=== PATIENT | female | born 1975 | race Caucasian/White ===

== ENCOUNTER 2024-03-18 12:44 | Outpatient (CLI) | payer BC, SELFPAY ==
--- NOTE | ~2024-03-18 | US_ITS ---
EXAMINATION: US pelvic complete INDICATION: Abnormal uterine bleeding Comparison:No prior studies for comparison. TECHNIQUE: Multiple transabdominal sonographic images of the pelvis performed. FINDINGS: The uterus measures 8.2 x 4.6 x 5.7 cm. There is a uterine fibroid located posteriorly miriam uring 2.8 x 2.2 x 2.1 cm. The endometrial complex measures 6 mm. The right ovary measures 2.7 x 1.7 x 1.8 cm and the left ovary measures 2.5 x 2.3 x 2.1 cm. There ar e small follicles in each ovary. Normal doppler signal in both ovaries. There is no free fluid in the pelvis. There are no abnormal masses seen on either side. IMPRESSION: 1. Uterine fibroid located posteriorly measuring 2.8 cm. Reviewed, dictated and finalized at location B.
== END 2024-03-18 12:45 ==
LOC: MICIMG 12:46
PROVIDERS: PCP Nurse Practitioner; Visit Provider Nurse Practitioner
DX: N93.8 Other specified abnormal uterine and vaginal bleeding (principal); D25.9 Leiomyoma of uterus, unspecified
CPT/HCPCS: 76856

== ENCOUNTER 2024-05-12 00:50 | Day surgery (SDC) | payer BC, SELFPAY ==
--- NOTE | 2024-05-01 16:53 | SUR.PREOP ---
Report to the Outpatient Waiting Room, entrance under the green pavilion located off [facility], at time 0800 on date 05/12/24. Planned Procedure Time: 1000. Time changes happen often and if your time is changed the preop area will call you the afternoon before. - You and your visitor will be asked to self-screen and do not enter if you have any COVID symptoms. - A mask is optional within the hospital at this time. Patients may have clear liquids (water, carbonated beverages, clear teas, apple juice) until 3 hours prior to surgery with a maximum of 20 ounces. - No food from midnight until time of surgery - Infants may have breast milk until 4 hours before surgery, formula 6 hours prior to surgery. - Children will be allowed to drink immediately following surgery. If applicable, please bring a bottle or sippy cup to assist with drinking. Juice, water, soda, and popsicles are readily available. For infants on formula, please bring formula the day of surgery. Pacifiers are allowed. Take the following medications with a SIP of water the morning of surgery: N/A DO NOT STOP ANY OF YOUR OTHER PRESCRIPTION MEDICATIONS PRIOR TO SURGERY ?EXCEPT THE FOLLOWING Medications to discontinue per physician N/A Date to take last dose Please no make-up, nail maltese, hairspray, perfume, deodorant, or body powder the day of surgery. No jewelry (including any body piercings) or valuables the day of surgery, leave them at home. Please take a shower or bath the night before, or the morning of, surgery with an antibacterial soap. Wear comfortable, loose fitting clothing. Children are encouraged to wear pajamas. - Jewelry must be removed prior to entering the operating room. Rings and piercings that are not removed may be cut off. - The hospital will not accept responsibility for valuables. - Please leave all valuables, including medications, at home the day of surgery. If you are going home after surgery, a licensed driver salesman must drive you home. - NO public transportation without another adult if you receive anesthesia. - We recommend that an adult stay with you for 24 hours following discharge. - We also recommend that you do not drive, make important decision, drink alcoholic beverages, or take any drugs that were not prescribed by your health care provider for at least 24 hours after your discharge time. For Pediatric surgeries, we recommend two adults accompany the child home. Follow any additional instructions given to you from your surgeon. If you or anyone in your household have experienced Covid symptoms in the past week, please notify your surgeon or the nurse liaison at the phone number below for possible testing. Telephone instructions given to _PATIENT_and asked if any additional questions and then verbalized understanding. Patient advised to call surgeon office or pre surgery nurse liaison [phone] if any additional questions.
[2024-05-01 16:54] VITALS: BMI 22.7
--- NOTE | 2024-05-12 07:28 | WPDHPUPDATE1 ---
History and Physical Update Update Date/Time: 05/12/24 07:28 History and Physical has been reviewed, including an updated exam of the patient. There are NO changes in the patient's condition. Risks, benefits, and alternatives have been discussed and questions answered. Patient agrees to proceed with procedure.
--- NOTE | 2024-05-12 07:28 | PM.HPGS ---
History of Present Illness History of Present Illness Consent: Risks, benefits, and alternatives have been discussed and questions answered. Patient agrees to proceed with procedure. Chief complaint: menorrhagia Narrative: Cecelia George is a 49 year old female with an episode prolonged bleeding for a pump. In addition the patient has had heavy cycles changing her pad every 30 to 45 minutes. Pelvic ultrasound does reveal 2.8cm fibroid. It was recommended to further undergo workup with hysteroscopy D&C. Risks of infection, bleeding, perforation, and fluid imbalance are reviewed. Possible pathology was also discussed. Patient voices understanding and agrees to proceed. Review of Systems Review of Systems: not repeated day of surgery; patient states no changes in status [facility] Surgical History Surgical History (Updated 05/12/24 @ 07:30 by Olga Astorga MD) History of breast biopsy 2018 benign Social History Social History Smoking status: Never smoker Alcohol intake: current Drinks per week: 15 Living arrangements: with family Meds Home Medications and Allergies Home Medications Medication Instructions Recorded Confirmed Type diphenhydramine HCl 25 mg capsule 25 mg PO HS PRN Sleep 05/01/24 05/01/24 History (Benadryl) Allergies Allergy/AdvReac Type Severity Reaction Status Date / Time No Known Allergies Allergy Verified 05/01/24 16:52 Exam Const: General: healthy appearing and alert Orientation/consciousness: patient oriented x3 Resp: Effort & Inspection: normal respiratory effort : External Female Exam: normal external appearance Speculum Exam - Vagina: normal appearance of the vagina and normal vaginal discharge Speculum Exam - Cervix: normal appearance of the cervix Bimanual exam- vagina & uterus: uterine size normal and consistency normal Bimanual Exam- Adnexa, other: normal adnexae and No adnexal tenderness Neuro: General: patient oriented x3 Assessment and Plan Assessment and plan (1) Menorrhagia: Code(s): N92.0 - Excessive and frequent menstruation with regular cycle Status: Acute Assessment and Plan: plan to proceed with D&C hysteroscopy
--- NOTE | 2024-05-12 07:31 | WPDHPUPDATE1 ---
History and Physical Update Update Date/Time: 05/12/24 07:31 History and Physical has been reviewed, including an updated exam of the patient. There are NO changes in the patient's condition. Risks, benefits, and alternatives have been discussed and questions answered. Patient agrees to proceed with procedure.
[2024-05-12] MEDS: LACTATED RINGERS 1,000 ML 30 ML IV CONT (08:00)
[2024-05-12 08:04] VITALS: BP 129/73; PULSE 64; RESP 16; TEMP 36.4; O2SAT 100
--- NOTE | 2024-05-12 08:38 | P.PNAN_ITS ---
Anes - Initial Pre Proc Eval Procedure: Operation Date: 05/12/24 10:00 Proposed Procedures p Hysteroscopy Dilation and Curettage - Olga Astorga MD Date/Time: 05/12/24 08:38 Surgeon: Olga Astorga MD Pre Op Diagnosis: menorrhagia Patient Data Age: 49 Gender: F Height: 1.7 m Weight: 65.35 kg Last Vital Signs Temp 97.6 F 05/12/24 08:04 Pulse 64 05/12/24 08:04 Resp 16 05/12/24 08:04 BP 129/73 05/12/24 08:04 Pulse Ox 100 05/12/24 08:04 O2 Del Method Room Air 05/12/24 08:04 Allergies Allergy/AdvReac Type Severity Reaction Status Date / Time No Known Allergies Allergy Verified 05/12/24 08:23 Home Medications Medication Instructions Recorded Confirmed Type diphenhydramine HCl 25 mg capsule 25 mg PO HS PRN Sleep 05/01/24 05/12/24 History (Benadryl) Patient hx anesthesia problems: none Family hx anesthesia problems: none Results Review: All pre-operative results and documents have been reviewed as part of the pre- operative evaluation. [facility] Surgical History Surgical History History of breast biopsy 2018 benign Social History Social History Smoking status: Never smoker Alcohol intake: current Drinks per week: 15 Living arrangements: with family Anes - Eval Final PreProcedure Day of Procedure 05/12/24 08:38 Patient weight: normal Heart: regular rate and rhythm Lungs: clear to auscultation Airway: Mallampati scale class II Neurological: alert and oriented Last oral intake: >/= 8 hours ASA classification: II Emergent: no Anesthetic plan: proceed Anesthesia type and monitoring: general GIVS and standard monitoring Results Review: All pre-operative results and documents have been reviewed as part of the pre- operative evaluation. ETOH use, 3 glasses wine/day. Pt walks treadmill occ, 3 x last week, no cp or sob. Informed Consent: The patient's anesthetic plan and its attendant risks and benefits were discussed with the patient/family/POA. Questions were solicited and answers provided to the satisfaction of the patient/family/POA.
[2024-05-12] MEDS: KETOROLAC 15 MG/ML VIAL (*BKC) IV PUSH (09:20)
--- NOTE | 2024-05-12 09:45 | W.PM.PROC2 ---
Procedure Note - Detailed Date of Procedure 05/12/24 Pre-op Diagnosis menorrhagia Post-op Diagnosis Same Procedure Performed D&C hysteroscopy with resection of endometrial mass Surgeon Olga Astorga MD Anesthesia MAC Findings uterus sounds to7.5cm and appears grossly atrophic there is an approximate 1cm sessile round mass on the posterior wall Description of Procedure The patient is taken to the operating room and placed under anesthesia in the dorsal lithotomy position. She was prepped and draped in the usual sterile fashion. [place] speculum was placed in the vagina and the cervix grasped on the anterior lip with a tenaculum. The uterus is sounded to 7.5cm. The diagnostic hysteroscope was placed. The small Aveta resection device is placed and the mass was removed in its entirety under direct visualization. The hysteroscope was then removed and the sharp OO curette is used to curette the endometrium until a good uterine cry was noted in all areas. Minimal material was obtained consistent with the visual appearance. All instruments are removed. Sponge, needle, and instrument counts are correct per the OR staff. The patient was awakened from anesthesia and taken to recovery in stable condition. Estimated Blood Loss 5 Drains No Packing No Pathology Yes ( Endometrial shavings and curettings) Complications No immediate complications Condition Stable Disposition PACU
[2024-05-12 09:46] VITALS: BP 102/62; PULSE 67; RESP 16; O2SAT 98
[2024-05-12 10:06] VITALS: BP 114/64; PULSE 57; RESP 16; O2SAT 98
[2024-05-12] MEDS: oxyCODONE HCL (*CRX) 5 MG TAB IR PO (10:26)
[2024-05-12 10:30] VITALS: BP 126/67; PULSE 54; RESP 16; O2SAT 100
[2024-05-12 10:45] VITALS: BP 118/68; PULSE 54; RESP 15; O2SAT 100
[2024-05-12 10:55] VITALS: BP 127/73; PULSE 53; RESP 16; O2SAT 100
== END 2024-05-12 10:59 | disposition home or self-care (01) ==
PROVIDERS: PCP Family Medicine; Referring Provider Nurse Practitioner; Visit Provider Obstetrics & Gynecology Gynecology
PROC: 0U5B8ZZ Destruction of Endometrium, Via Natural or Artificial Opening Endoscopic (ICD-10-PCS; CPT 58563; principal; 2024-05-12 10:00)
DX: N85.8 Other specified noninflammatory disorders of uterus (principal); Z98.890 Other specified postprocedural states
CPT/HCPCS: 58558; 88305; A9270; J1100; J1885; J2250; J2405; J2704; J3010; J7120